=== PATIENT | female | born 1995 | race Caucasian/White ===

== ENCOUNTER → 2017-08-05 23:35 | Observation (INO) ==
--- OUTSIDE RECORDS SUMMARY | 2017-08-05 19:50 | External Medical Summary | Continuity of Care Document ---
:1995 Author Organization [facility] Address [address] [place], [place] [id number] Phone Care Team Providers Name Role Phone Deshaun Isaac MD, FAAFP Unavailable Unavailable Allergies, Adverse Reactions, Alerts Substance Reaction Severity Status peanut Unknown Active almond Unknown Active sesame seed Rash Unknown Active Medications Medication Instructions Dosage Effective Dates Status Comments (start - stop) fluconazole 150 mg take 1 tablet by 150 MG - Active tablet oral route once metronidazole 500 mg take 1 tablet by 500 MG - Active tablet ORAL route 2 times every day fluoxetine 20 mg take 1 capsule by 20 MG - Active capsule oral route every day in the morning 28 mg take 1 tablet by Not Available - Active iron-800 mcg tablet oral route every day ProAir HFA 90 inhale 1 puff by - Active mcg/actuation inhalation route aerosol inhaler every 4 - 6 hours as needed as needed Zyrtec 10 mg tablet take 1 tablet by 10 MG - Active oral route every day Problems Condition Effective Dates (start - stop) Clinical Status Low weight gain in , second - trimester Gonorrhea complicating , - second trimester Encounter for suprvsn of normal - , second trimester 21 weeks gestation of - Threatened Encounter for test, result - positive Low weight gain in , second - trimester Gonorrhea complicating , - second trimester Oth mental disorders comp , - second trimester 20 weeks gestation of - Dorsalgia, unspecified - Gonorrhea complicating , - second trimester Oth mental disorders comp , - second trimester 22 weeks gestation of - Complete or unsp spontaneous without complication Threatened Low weight gain in , second - trimester Encounter for suprvsn of normal - , second trimester 20 weeks gestation of - Low weight gain in , second - trimester Gonorrhea complicating , - second trimester Oth mental disorders comp , - second trimester 17 weeks gestation of - Gonorrhea complicating , - first trimester Oth mental disorders complicating - , first trimester Encounter for suprvsn of normal - , first trimester 12 weeks gestation of - Gonorrhea complicating , - first trimester Gonorrhea complicating , - second trimester Encounter for suprvsn of normal - , second trimester 22 weeks gestation of - Encntr screen for infections w sexl - mode of transmiss Encounter for screening for oth - infec/parastc diseases Encounter for suprvsn of normal - , first trimester Encounter For Other Specified - Screening 8 weeks gestation of - Asthma Active Kidney Stones Active Procedures Procedure Date OB Visit No Charge Results Test Name Date and Time Measure Units Reference Range Abnormal Flag Comments Unknown Advance Directives Directive Yes / No Effective Date File Name Unknown Encounters Encounter Practice Location Reason(s) Diagnoses Date Provider Care Team Description For Visit Members Shaji Saldana May- Sobbing In Womens 3-201 [facility], [address], [id number], 120, [place] Les, tel:[phone] [place], [id number], [place]. tel:[phone] Shaji Saldana Gonorrhea Apr-2 Sobbing Referring In Womens complicating 0-201 [place]. Provider: Health PA, , second 8 700 [facility] Medical Delfino R, 1522, r for suprvsn of Center [address] [place], normal , [facility], second Suite Center [id number], [email or web address] weeks 120, [place] 120, [place] gestation of Les Saldana, tel:+ [place] [address], [id number]. [place]. tel: tel: [phone] Associates Les Dorsalgia, Apr-1 Sobbing Referring In Womens unspecifiedGonorr 6-201 [place]. Provider: shashi Farrell complicating 8 700 [facility] Box , second Medical Delfino R, 1522, trimesterOth Center [address] [place] [address], mental disorders [facility], comp , Suite Center [id number], second 120, [place] 120, [place] [email or web address] weeks Les Saldana, tel: [place] [address], [id number]. [place]. tel: tel: [phone] Associates Les Low weight gain Apr-1 Sobbing Referring In Womens in , 2-201 [place]. Provider: Irena DUKE, second 8 700 [facility] Medical Delfino R, 1522, a complicating Center [address] [place], , second [facility], [facility] Suite Center [id number], r for suprvsn of 120, [place] 120, [place] normal , Les Saldana, tel: second [place], [place], [email or web address] weeks [address], [id number]. gestation of [place]. tel: tel: [phone] Associates Les Low weight gain Apr-0 Sobbing Referring In Womens in , 2-201 [place]. Provider: Health LEILANI, second 8 700 [facility] Box trimesterGonorrhe Medical Delfino R, 1522, a complicating Center [address] [place], , second [facility], trimesterOth Suite Center [id number], mental disorders 120, [place] 120, [place] comp , Les Saldana, tel: second [place], [place], [email or web address] weeks [address], [id number]. gestation of [place]. tel: tel: [phone] Associates Les Low weight gain Apr-0 Sobbing Referring In Womens Ultrasound in , 2 [place]. Provider: Irena DUKE, second 8 700 [facility] Medical Delfino R, 1522, r for suprbernaben of Center [address] [place] [address], normal , [facility], second Suite Center [id number], [email or web address] weeks 120, [place] 120, [place] gestation of Sal[place] Les, [place]: [place], [address], [id number]. [place]. tel: tel: [phone] Associates Les Low weight gain Mar-1 Sobbing Referring In Womens in , 3 [place]. Provider: Irena DUKE, second 8 700 [facility] trimesterGonorrhe Medical Delfino R, 1522, a complicating Center [address] [place] [address], , second [facility], trimesterOth Suite Center [id number], mental disorders 120, [place] 120, [place] comp , Les Saldana, tel: second [place], [place], [email or web address] weeks [address], [id number]. gestation of [place]. tel: tel: [phone] Associates Les Gonorrhea Feb-0 Sobbing Referring In Womens complicating [place]. Provider: Irena DUKE, , first 8 700 [facility], 1522, mental disorders Center [address] [place] [address], complicating [facility], , first Suite Center [id number], trimesterEncounte 120, [place] 120, [place] r for suprvsn of Les Les, tel: normal , [place], [place], first [email or web address] [address], [id number]. weeks gestation [place]. tel: of tel: [phone] Associates Les Gonorrhea Baldemar- Sobbing Referring In Womens complicating [place]. Provider: Irena DUKE, , first 8 700 [facility] trimester Medical Delfino R, 1522, Center [address] [place], [facility], [facility], Suite Center [id number], 120, [place] 120, [place] Les [place], tel: [place], [address], [id number]. [place]. tel: tel: [phone] Shaji Saldana Encntr screen for Sobbing Referring In Womens infections w sexl - [place]. Provider: Irena DUKE, mode of 8 700 Marek PO Box transmissEncounte Medical Delfino R, 1522, r for screening Center [address] [place] [address], [facility], [facility], infec/parastc Suite Center [id number], diseasesEncounter 120, [place] 120, [place] for suprvsn of Les Saldana, tel: [place] , [place], first [address], [id number]. trimesterEncounte [place]. tel: r For Other tel: [phone] Specified [id number] Screening8 weeks gestation of Associates Les Complete or unsp Aug-2 Goode In Womens spontaneous 5-201 [place]. Irena DUKE, without 7 700 PO Box complication Medical [address], [address] Trish, [facility], 120, [id number], Sal[place], [place], tel: [phone] , [place]. tel: [phone] Shaji Saldana Threatened Aug-2 Delfino Referring In Womens 4-201 [place]. 700 Provider: Irena DUKE, 7 Medical Marek PO Box Center Delfino R, 1522, , [place] [address] Trish, [facility], Medical Les BUCKLEY, [place] [id number], [place], [place] 120, [place] [id number] Les, tel: , [place]. [place], tel: [phone]. [id number] tel:[phone] Shaji Saldana Threatened Aug-2 Goode Referring In Womens abortionEncounter 3-201 [place]. Provider: Irena DUKE, for 7 700 Marek PO Box test, result Medical Delfino R, 1522, positive Center [facility] Dr Trish, [facility] Medical [place], 120, Center [id number], Sald[place], Solitario 120, [place] Les BUCKLEY, tel:[phone] [place], [id number] , [place]. [id number]. tel: tel:[phone] Family History Family Member Diagnosis Age At Onset Maternal Grandmother Cardiovascular Disease Father Diabetes No family history of Pulmonary Embolism No family history of Venous Thrombosis Maternal Grandfather Thyroid Disorder Mother Kidney Disease Maternal Grandfather Cardiovascular Disease Mother Ovarian Cancer Maternal Grandfather Lung Disease Immunizations Vaccine Date Status Comments Unknown Payers Payer name Insurance type Covered libertarian ID Authorization(s) [facility] [id number] Social History Type Description Quantity Date Captured Alcohol Use Details No Caffeine Use Details Unknown Tobacco Use Status Unknown Smoking Status Never smoker Vital Signs Date / Height Weight BMI Pulse Blood Temperature Respiratory Body Head BMI Time: Rate Pressure Rate Surface Circumference percentile Area 134.30 23.4 132/75 2018 lbs 1 mm[Hg] 4:31 kg/m PM eter (2) Chief Complaint And Reason For Visit Unknown Chief Complaint And Reason For Visit Reason For Referral Reason For Referral Unknown Plan Of Care Date Type Action Status Appointment Leandro Woo BOOKED Future Order: Radiology Order Ultrasound OB Follow-up ([id number]) Ordered Date Type Problem Goal Intervention Status Start Date Unknown. History Of Present Illness Encounter Date Complaint History Of Present Illness This patient has no known history of present illness Functional Status Encounter Date Functional Assessment Cognitive Assessment Unknown Medications Administered Medication Instructions Dosage Effective Dates (start - stop) Status Comments Drug Treatment Unknown Instructions Date Instruction Additional Information HIV and other routine tests risk factors identified by history anticipated course of care nutrition and weight gain counseling, special diet toxoplasmosis precautions (cats / raw meat) sexual activity exercise indications for ultrasound influenza vaccine environmental / work hazards travel use of any medications (including supplements, vitamins, herbs, OTC drugs) domestic violence seat belt use childbirth classes / hospital facilities hospital registration genetic testing new ob handbook
--- OUTSIDE RECORDS SUMMARY | 2017-08-05 19:50 | External Medical Summary | Continuity of Care Document ---
:1997 Author Organization [facility] Address [address] [place], [place] [id number] Phone Care Team Providers Name Role Phone Deshaun Isaac MD, FAAFP Unavailable Unavailable Allergies, Adverse Reactions, Alerts Substance Reaction Severity Status peanut Unknown Active almond Unknown Active sesame seed Rash Unknown Active Medications Medication Instructions Dosage Effective Dates Status Comments (start - stop) drospiren-e.estrad take 1 tablet by Not Available - Active -l.mefol 3 mg-0.02 oral route every mg-0.451 day mg(24)/0.451 mg(4)tablet fluoxetine 20 mg take 1 capsule by 20 MG - Active capsule oral route every day in the morning 28 mg take 1 tablet by Not Available - Active iron-800 mcg oral route every tablet day ProAir HFA 90 inhale 1 puff by - Active mcg/actuation inhalation route aerosol inhaler every 4 - 6 hours as needed as needed Zyrtec 10 mg take 1 tablet by 10 MG - Active tablet oral route every day Problems Condition Effective Dates (start - stop) Clinical Status Low weight gain in , second - trimester Encounter for suprvsn of normal - , second trimester 20 weeks gestation of - Threatened Encounter for test, result - positive Low weight gain in , second - trimester Gonorrhea complicating , - second trimester Oth mental disorders comp , - second trimester 20 weeks gestation of - Dorsalgia, unspecified - Gonorrhea complicating , - second trimester Oth mental disorders comp , - second trimester 22 weeks gestation of - Gonorrhea complicating , - second trimester Encounter for suprvsn of normal - , second trimester 22 weeks gestation of - Complete or unsp spontaneous without complication Threatened Low weight gain in , second - trimester Gonorrhea complicating , - second trimester Encounter for suprvsn of normal - , second trimester 21 weeks gestation of - Low weight gain [...] - Gonorrhea complicating , - first trimester Encntr screen for infections w sexl - mode of transmiss Encounter for screening for oth - infec/parastc diseases Encounter for suprvsn of normal - , first trimester Encounter For Other Specified - Screening 8 weeks gestation of - Asthma Active Kidney Stones Active Procedures Procedure Date Ultrasnd preg uterus, flwup/repeat Results Test Name Date and Time Measure Units Reference Range Abnormal Flag Comments Unknown Advance Directives Directive Yes / No Effective Date File Name Unknown Encounters Encounter Practice Location Reason(s) Diagnoses Date Provider Care Team Description For Visit Members Shaji Saldana Gonorrhea May-2 Sobbing Referring In Womens complicating 0-201 [place]. Provider: [facility], , second 8 700 Marek PO Box [facility] Juan Carlos Ozuna, Anthony2, r for suprvsn of Center [address] [place], normal , Drive, Medical [place], second Suite Center [id number], [email or web address] weeks 120, [place] 120, [place] gestation of Les Les, tel: [place], [address], [id number]. [place]. tel: tel: [phone] Associates Les Dorsalgia, Apr-1 Sobbing Referring In Womens unspecifiedGonorr 6- [place]. Provider: shashi Farrell complicating 8 700 [place] Box , second Medical Delfino R, 1522, trimesterOth Center [address] [place], mental disorders [facility], Medical [place], comp , Suite Center [id number], second 120, [place] 120, [place] [email or web address] weeks Les Saldana, tel: [place], [address], [id number]. [place]. tel: tel: [phone] Associates Les Low weight gain Apr-1 Sobbing Referring In Womens in , [place]. Provider: Health PA, second 8 700 [facility] Box trimesterGonorrhe Medical Delfino R, 1522, a complicating Center 700 [place], , second [address], [facility], trimesterEncounte Suite Center [id number], r for suprvsn of 120, [place] 120, [place] normal , Les Les, tel: second [place], weeks [address], [id number]. gestation of [place]. tel: tel: [phone] Associates Les Low weight gain Apr-0 Sobbing Referring In Womens in , [place]. Provider: Health PA, second 8 700 Marek Box trimesterGonorrhe Medical Delfino R, 1522, a complicating Center 700 [place], , second [address], [facility], trimesterOth Suite Center [id number], mental disorders 120, [place] 120, [place] comp , Les Saldana, tel: second [place], [email or web address] weeks [address], [id number]. gestation of [place]. tel: tel: [phone] Shaji Saldana Low weight gain Apr-0 Sobbing Referring In Womens Ultrasound in , 2- [place]. Provider: Irena DUKE, second 8 700 [facility] trimesterEncplacentia-linda hospitale Medical Delfino R, 1522, r for suprvsn of Center [address] [place] [address], normal , [facility], second Suite Center [id number], [email or web address] weeks 120, Solit[place] 120, [place] gestation of Les Les, tel: [place], [address], [id number]. [place]. tel: tel: [phone] Shaji Saldana Low weight gain Mar- Sobbing Referring In Womens in , 3 [place]. Provider: Irena DUKE, second 8 700 [facility] trimesterGonorrhe Medical Delfino R, 1522, a complicating Center [address] [place] [address], , second [facility], trimesterOth Suite Center [id number], mental disorders 120, [place] 120, [place] comp , Les Les, tel: second [place], [place], [email or web address] weeks [address], [id number]. gestation of [place]. tel: tel: [phone] Shaji Saldana Gonorrhea Feb-0 Sobbing Referring In Womens complicating [place]. Provider: Irena DUKE, , first 8 700 [facility] Delfino R, 1522, mental disorders Center [address] [place] [address], complicating [facility], , first Suite Center [id number], trimesterEncounte 120, [place] 120, [place] r for suprvsn of Les Saldana, tel: normal , [place], [place], first [address], [id number]. weeks gestation [place]. tel: of tel: [phone] Shaji Saldana Gonorrhea Feb- Sobbing Referring In Womens complicating [place]. Provider: Irena DUKE, , first 8 700 [facility] trimester Medical Delfino R, 1522, Center [address] [place] [address], Suite Center [id number], 120, Solit[place] 120, [place] Les Saldana, tel: [place], [address], [id number]. [place]. tel: tel: [phone] Shaji Saldana Encntr screen for Sobbing Referring In Womens infections w sexl [place]. Provider: Irena DUKE, mode of 8 700 Marek PO Box transmissEncounte Medical Delfino R, 1522, r for screening Center [facility] [place], for [facility], [facility], infec/parastc Suite Center [id number], [facility] [place] 120, [facility] 120, for suprvsn of Les Saldana, tel: normal , [place], [place] [address], [id number]. trimesterEncounte [place]. tel: r For Other tel: [phone] Specified [id number] Screening8 weeks gestation of Associates Les Complete or unsp Aug-2 Goode In Womens spontaneous 5-201 [place]. Irena DUKE, without 7 700 PO Box complication Medical [address], [place] [address] Trish, [facility], [facility], [id number], [place], [place], tel: [phone] , [place]. tel: [phone] Shaji Saldana Threatened Aug-2 Delfino Referring In Womens 4-201 [place]. 700 Provider: Irena DUKE, 7 Medical Marek PO Box [place] Delfino Ozuna, 1522, , [place] [address] [place], [facility], [facility] Les BUCKLEY Maddy Mccartney [id number], [place], [place] [address], [id number] Les, tel: , . [place], tel: [phone]. [id number] tel:[phone] Shaji Saldana Threatened Aug-2 Goode Referring In Womens abortionEncounter 3-201 [place]. Provider: Irena DUKE, for 7 700 Marek PO Box test, result Medical Delfino Ozuna, 1522, positive Center [facility] Dr Trish, [facility], 120, [place] [id number], [place] [address], Les BUCKLEY, tel: [phone] [place], , . [id number]. tel: tel: [phone] Family History Family Member Diagnosis Age At Onset Maternal Grandmother Cardiovascular Disease Father Diabetes No family history of Pulmonary Embolism No family history of Venous Thrombosis Maternal Grandfather Thyroid Disorder Mother Kidney Disease Maternal Grandfather Cardiovascular Disease Mother Ovarian Cancer Maternal Grandfather Lung Disease Immunizations Vaccine Date Status Comments Unknown Payers Payer name Insurance type Covered libertarian ID Authorization(s) JAH HANNON [id number] Social History Type Description Quantity Date Captured Unknown Vital Signs Date / Height Weight BMI Pulse Blood Temperature Respiratory Body Head BMI Time: Rate Pressure Rate Surface Circumference percentile Area Unknown Chief Complaint And Reason For Visit Unknown Chief Complaint And Reason For Visit Reason For Referral Reason For Referral Unknown Plan Of Care Date Type Action Status Appointment Leandro Woo BOOKED Future Order: Radiology Order Ultrasound OB Follow-up ([id number]) Ordered Future Order: Lab Order GC/CT Amplified Probe (GC_CT) Ordered Date Type Problem Goal Intervention Status [...]
[~2017-08-05 23:35] MED LIST: DimenhyDRINATE 50 MG in LR 1,000 ML IV SCH; ONDANSETRON 4 MG/2 ML INJECTION IVP ONE
[2017-08-05 23:42] VITALS: BMI 21.9
[2017-08-06 00:03] VITALS: BP 104/55; PULSE 81; RESP 16; TEMP 98; O2SAT 98
== END | disposition home or self-care (01) ==
LOC: MC
PROVIDERS: ADMIT Obstetrics & Gynecology; ATTEND Obstetrics & Gynecology

== ENCOUNTER 2017-10-04 12:46 | Inpatient (IN) ==
[2017-10-04] MEDS ORDERED: HYDROCODONE/APAP 5mg/325mg TABLET PO PRN (15:49)
[2017-10-04] MEDS ORDERED: LIDOCAINE 1% (10mg/ml) 2mL INJ PF SDV ID PRN (15:49)
[2017-10-04] MEDS ORDERED: ZOLPIDEM 5 MG TABLET PO PRN (15:49)
[2017-10-04] MEDS ORDERED: CARBOPROST 250 MCG/ML INJECTION IM PRN (15:49)
[2017-10-04] MEDS ORDERED: CALCIUM CARBONATE Chewable 500mg TABLET PO PRN (15:49)
[2017-10-04] MEDS ORDERED: SALINE FLUSH 10ml SYRINGE IV PRN ×2 (15:49)
[2017-10-04] MEDS ORDERED: MAG-AL + SIM ORAL LIQUID 30ml PO PRN (15:49)
[2017-10-04] MEDS ORDERED: METHYLERGONOVINE 0.2 MG/ML INJECTION IM PRN (15:49)
[2017-10-04] MEDS ORDERED: ACETAMINOPHEN 500 MG TABLET PO PRN (15:49)
--- OUTSIDE RECORDS SUMMARY | 2017-10-04 15:50 | External Medical Summary | Continuity of Care Document ---
:1995 Author Organization [facility] Address [address] [place], [place] [id number] Phone Care Team Providers Name Role Phone Deshaun Isaac MD, FAAFP Unavailable Unavailable Allergies, Adverse Reactions, Alerts Substance Reaction Severity Status peanut Unknown Active almond Unknown Active sesame seed Rash Unknown Active Medications Medication Instructions Dosage Effective Dates Status Comments (start - stop) RhoGAM - Active Ultra-Filtered PLUS 1,500 unit (300 mcg) intramuscular syringe fluoxetine 20 mg take 1 capsule by 20 MG - Active capsule oral route every day in the morning 28 mg take 1 tablet by Not Available - Active iron-800 mcg tablet oral route every day ProAir HFA 90 inhale 1 puff by - Active mcg/actuation inhalation route aerosol inhaler every 4 - 6 hours as needed as needed Problems Condition Effective Dates (start - stop) Clinical Status Threatened Encounter for test, result - positive Infection oth prt genitl trct in - , third trimester Low weight gain in , third - trimester Gonorrhea complicating , - third trimester Dorsalgia, unspecified - Low weight gain in , third - trimester Decreased movements, third - trimester, unsp 34 weeks gestation of - Dorsalgia, unspecified - Gonorrhea complicating , - second trimester Oth mental disorders comp , - second trimester 22 weeks gestation of - Unsp cond assoc w female genital - organs and menstrual cycle Unsp infct of urinary tract in - , third trimester Unsp cond assoc w female genital - organs and menstrual cycle Gonorrhea complicating , - third trimester Encounter for suprvsn of normal - , third trimester 37 weeks gestation of - Complete or unsp [...] second trimester 17 weeks gestation of - Low weight gain in , second - trimester Gonorrhea complicating , - second trimester Oth mental disorders comp , - second trimester 20 weeks gestation of - Low weight gain in , third - trimester 32 weeks gestation of - Decreased movements, third - trimester, unsp Gonorrhea complicating , - third trimester Oth mental disorders complicating - , third trimester 38 weeks gestation of - Gonorrhea complicating , [...] mental disorders comp , - second trimester Encounter for suprvsn of normal - , second trimester 24 weeks gestation of - Gonorrhea complicating , - second trimester Encounter for suprvsn of normal - , second trimester 27 weeks gestation of - Encntr screen for infections w sexl - mode of transmiss Encounter for screening for oth - infec/parastc diseases Encounter for suprvsn of normal - , first trimester Encounter For Other Specified - Screening 8 weeks gestation of - Encounter for suprvsn of normal - , third trimester 32 weeks gestation of - Asthma Active Kidney Stones Active Procedures Procedure Date Unknown Results Test Name Date and Time Measure Units Reference Range Abnormal Flag Comments Unknown Advance Directives Directive Yes / No Effective Date File Name Unknown Encounters Encounter Practice Location Reason(s) Diagnoses Date Provider Care Team Description For Visit Members Shaji Saldana Decreased Aug- Sobbing Referring In Womens movements, third 6-201 [place]. Provider: Health LEILANI, trimester, 8 700 [address] unspGonorrhea Medical Anthony Ruiz2, complicating Center [address] [place], [facility], third [facility], [facility], [facility]1983Oth [address] [place] [id number], mental disorders 120, [place] 120, [place] complicating Les Saldana, tel: , third [place], [place], [address] [email or web address] weeks [address], [id number]. gestation of [place]. tel: tel: [phone] Shaji Saldana Unsp cond assoc w Aug-3 Sobbing Referring In Womens female genital 0-201 [place]. Provider: Health LEILANI, organs and 8 700 [address] menstrual Medical Delfino R 1522, cycleGonorrhea Center [address] [place], [facility] , third Suite Center [id number], trimesterEncounte 120, [place] 120, [place] r for suprvsn of Les Sald[place], tel: normal , [place], third [email or web address] [address], [id number]. weeks gestation [place]. tel: of tel: [phone] Associates Les Unsp cond assoc w Felix- Delfino Referring In Womens female genital 6-201 [place]. [facility] Provider: Irena DUKE, organs and 8 Medical [facility] menstrual Center Delfino R, 1522, cycleUnsp infct , [place] [address] [place] [address], of urinary tract 120, Medical [place], in , [facility] [id number], third trimester [place], [place] 120, [place] [id number] Les, tel: , [place]. [place], tel:[phone]. [id number] tel:[phone] Shaji Saldana Aug- Sobbing Referring In Womens 3-201 [place]. Provider: Irena DUKE, 8 700 [facility] Medical Delfino R, 1522, Center [address] [place] [address], Suite Center [id number], 120, [place] 120, [place] Les Sald[place], tel: [place], [address], [id number]. [place]. tel: tel: [phone] Shaji Saldana Dorsalgia, Felix-1 Sobbing Referring In Womens unspecifiedLow 2-201 [place]. Provider: Irena DUKE, weight gain in 8 700 [facility] , third Medical Delfino R, 1522, trimesterDecrease Center [address] [place] [address] [facility], [facility], movements, third Suite Center [id number], trimester, [id number] 120, [place] 120, [place] weeks gestation Les Saldana, tel: [place], [address], [id number]. [place]. tel: tel: [phone] Shaji Saldana Encounter for Iron-2 Sobbing Referring In Womens suprvsn of normal 7-201 [place]. Provider: Irena DUKE, , third 8 700 [facility] [email or web address] weeks Medical Delfino R, 1522, gestation of Center [address] [place] [address], Suite Center [id number], 120, [place] 120, [place] Les Saldana, tel: [place], [place], 114, [id number]. [place]. tel: tel: [phone] Shaji Saldana Low weight gain Iron-2 Sobbing Referring In Womens Ultrasound in , [place]. Provider: Irena DUKE, third [email or web address] 8 700 [facility] weeks gestation Medical Delfino R, 1522, of Center [address] [place] [address], Suite Center [id number], 120, [place] 120, [place] Les Saldana, tel: [place], [place], 114, [id number]. [place]. tel: tel: [phone] Shaji Saldana Infection oth prt Iron-0 Sobbing Referring In Womens genitl trct in [place]. Provider: Irena DUKE, , third 8 700 [facility] trimesterLow Medical Delfino R, 1522, weight gain in Center [address] [place] [address], , third [facility], trimesterGonorrhe Suite Center [id number], a complicating 120, [place] 120, [place] , third Les Saldana, tel:+ [place], [address], [id number]. [place]. tel: tel: [phone] Shaji Saldana Gonorrhea May-2 Sobbing Referring In Womens complicating [place]. Provider: Irena DUKE, , second 8 700 [facility] trimesterEncounte Medical Delfino R, 1522, r for suprvsn of Center [address] [place] [address], normal , [facility], second Suite Center [id number], [email or web address] weeks 120, [place] 120, [place] gestation of Les Saldana, tel:+ [place], [address], [id number]. [place]. tel: tel: [phone] Shaji Saldana May-2 Sobbing In Womens [place]. Irena DUKE, 8 700 [facility] Medical 1522, [place], [place], Suite [id number], 120, [place], [place], [address], [place]. tel: [phone] Associates Les Gonorrhea May-0 Sobbing Referring In Womens complicating 4-201 [place]. Provider: Irena DUKE, , second 8 700 [address] trimesterOth Medical Delfino R, 1522, mental disorders Center [address] [place], [facility] , [facility], second Suite Center [id number], trimesterEncounte 120, [place] 120, [place] r for suprvsn of Les [place], tel: [place] , [place], second [address], [id number]. [id number] weeks [place]. tel: gestation of tel: [phone] Associates [facility] Gonorrhea Apr-2 Sobbing Referring In Womens complicating 0-201 [place]. Provider: Irena DUKE, , second 8 700 [address]arek Box trimesterEncounte Medical Delfino R, 1522, r for suprvsn of Center [address] [place] [address], normal , [facility], second Suite Center [id number], [email or web address] weeks 120, [place] 120, [place] gestation of Les [place], [place]: [place], [address], [id number]. [place]. tel: tel: [phone] Associates Les Dorsalgia, Apr-1 Sobbing Referring In Womens unspecifiedGonorr 6-201 [place]. Provider: shashi Farrell complicating 8 700 [address]arek Box , second Medical Delfino R, 1522, trimesterOth Center 700 [place], mental disorders [facility], Medical [place], comp , Suite Center [id number], second 120, [place] 120, [place] [id number] weeks Les Saldana, tel: [place], [address], [id number]. [place]. tel: tel: [phone] Associates Les Low weight gain Apr-1 Sobbing Referring In Womens in , 2-201 [place]. Provider: Irena DUKE, second 8 700 [address]arek Box trimesterGonorrhe Medical Delfino R, 1522, a complicating Center [address] [place] [address], , [facility], [facility] Suite Center [id number], r for suprvsn of 120, [place] 120, [place] normal , Les Les, tel:+ second [place], [email or web address] weeks [address], [id number]. gestation of [place]. tel: tel: [phone] Associates Les Low weight gain Apr-0 Sobbing Referring In Womens in , 2 [place]. Provider: Health PA, second 8 700 [facility] Medical Delfino R, 1522, a complicating Center [address] [place] [address], , [facility], trimesterOth Suite Center [id number], mental disorders 120, [place] 120, [place] comp , Les Les, tel:+ [place], weeks [address], [id number]. gestation of [place]. tel: tel: [phone] Shaji Saldana Low weight gain Apr-0 Sobbing Referring In Womens Ultrasound in , 2 [place]. Provider: Health PA, second [address] [facility] Medical Delfino R, 1522, r for suprvsn of Center [address] [place] [address], normal , [facility], [facility] Suite Center [id number], [email or web address] weeks 120, [place] 120, [place] gestation of Les Les, tel:+ [place], [address], [id number]. [place]. tel: tel: [phone] Shaji Saldana Low weight gain Mar-1 Sobbing Referring In Womens in , 3- [place]. Provider: Health [place], second 8 700 [facility] Medical Delfino R, 1522, a complicating Center [address] [place] [address], , [facility], [facility] Suite Center [id number], mental disorders 120, [place] 120, [place] comp , Les Les, tel:+ second [place], [id number] weeks [address], [id number]. gestation of [place]. tel: tel: [phone] Shaji Saldana Gonorrhea Fe- Sobbing Referring In Womens complicating 9 [place]. Provider: Health LEILANI, , first 8 700 [facility] Box trimesterOth Medical Delfino R, 1522, mental disorders Center [address] [place] [address], [facility], , first Suite Center [id number], trimesterEncounte 120, [place] 120, [place] r for suprvsn of Les Sald[place], tel: normal , [place], first [email or web address] [address], [id number]. weeks gestation [place]. tel: of tel: [phone] Shaji Saldana Gonorrhea Sobbing Referring In Womens complicating [place]. Provider: Health LEILANI, , first 8 700 [facility] Box trimester Medical Delfino R, 1522, Center [address] [place] [address], Suite Center [id number], 120, [place] 120, [place] Les Saldana, [place]: [place], [address], [id number]. [place]. tel: tel: [phone] Shaji Saldana Encntr screen for Sobbing Referring In Womens infections w sexl [place]. Provider: Irena DUKE, mode of 8 700 [facility] Box transmissEncounte Medical Delfino R, 1522, r for screening Center [address] [place] [address], [facility], infec/parastc Suite Center [id number], diseasesEncounter 120, [place] 120, [place] for suprvsn of [place], tel: [place] , [place], [place] [address], [id number]. trimesterEncounte [place]. tel: r For Other tel: [phone] Specified [id number] Screening8 weeks gestation of Shaji Saldana Complete or unsp Goode In Womens spontaneous - [place]. Health LEILANI, without 7 700 PO Box complication Medical 1522, [place], , [place], 120, [id number], [place], [place], tel:[phone] , [place]. tel: [phone] Shaji Saldana Threatened 2 Delfino Referring In Womens 4-201 [place]. 700 Provider: Irena DUKE, 7 Medical Marek PO Box Center Delfino [place]una 1522, , [facility] 700 Trish, 120, Medical [place], [facility] [id number], [facility] 120, [id number] Les, tel: , [place]. [place], tel: [phone]. [id number] tel:[phone] Shaji Saldana Threatened Sep-2 Goode Referring In Womens abortionEncounter 3-201 [place]. Provider: Irena DUKE, for 7 700 [place] PO Box test, result Medical Anthony Ruiz2, positive Center [address] Trish, [place] [address], [place] [id number], [facility], Les [place], tel: [phone] [place], , [place]. [id number]. tel: tel: [phone] Family History Family Member Diagnosis Age At Onset Maternal Grandmother Cardiovascular Disease Father Diabetes No family history of Pulmonary Embolism No family history of Venous Thrombosis Maternal Grandfather Thyroid Disorder Mother Kidney Disease Maternal Grandfather Cardiovascular Disease Mother Ovarian Cancer Maternal Grandfather Lung Disease Immunizations Vaccine Date Status Comments RhoGam completed Source: New Immunization Record Tdap completed Source: New Immunization Record Payers Payer name Insurance type Covered green party ID Authorization(s) [facility] - [id number] Medicaid [place] [id number] Social History Type Description Quantity Date Captured Alcohol Use Details No Caffeine Use Details Unknown Tobacco Use Status Unknown Smoking Status Never smoker Vital Signs Date / Height Weight BMI Pulse Blood Temperature Respiratory Body Head BMI Time: Rate Pressure Rate Surface Circumference percentile Area 4 8:35 kg/m AM dylon (2) Chief Complaint And Reason For Visit Unknown Chief Complaint And Reason For Visit Reason For Referral Reason For Referral Unknown Plan Of Care Date Type Action Status Appointment Leandro Hung BOOKED Future Order: Radiology Order Ultrasound OB Follow-up (30344) Ordered Future Order: Radiology Order Ultrasound OB Follow-up ([id number]) Ordered Date Type Problem Goal Intervention Status [...]
--- OUTSIDE RECORDS SUMMARY | 2017-10-04 15:51 | External Medical Summary | Continuity of Care Document ---
:1995 Author Organization [facility] Address [address] [place], [place] [id number] Phone Care Team Providers Name Role Phone [...] - trimester 32 weeks gestation of - Gonorrhea complicating , [...] Provider Care Team Description For Visit Members Associates Les Unsp cond assoc w Sobbing Referring In Womens female genital 0-201 [place]. Provider: Health PA, organs and [address] [place] [address] Delfino Ozuna, 1522, cycleGonorrhea [address], , third Suite Center [id number], trimesterEncounte 120, [place] 120, [place] r for suprvsn of Les Sadlana, tel: normal , [place], [place], third [email or web address] [address], [id number]. weeks gestation [place]. tel: of tel: [phone] Associates Les Unsp cond assoc w Delfino Referring In Womens female genital 6-201 [place]. [facility] Provider: Health LEILANI Snapsort and 8 [facility] Delfino R, 1522, cycleUnsp infct , [address], of urinary tract [facility], [facility], in , [facility] [id number], third trimester [place], [place] 120, [place] [id number] Les, tel: , [place]. [place], tel:[phone]. [id number] tel:[phone] Shaji Saldana Dorsalgia, Felix-1 Sobbing Referring In Womens unspecifiedLow [place]. Provider: Irena DUKE, weight gain in 8 700 [facility] , third Medical Delfino R, 1522, trimesterDecrease Center [address] [place] [address] [facility], movements, third Suite Center [id number], trimester, [id number] 120, [place] 120, [place] weeks gestation Les Saldana, tel: [place], [address], [id number]. [place]. tel: tel: [phone] Shaji Saldana Felix-0 Sobbing In Womens [place]. Health LEILANI, 8 700 [facility] Medical 1522, Center [place], [place], [address] [id number], 120, [place], [place]: [place], [address], [place]. tel: [phone] Shaji Saldana Encounter for Iron-2 Sobbing Referring In Womens suprvsn of normal [place]. Provider: Irena DUKE, , third 8 700 [facility] [email or web address] weeks Medical Delfino R, 1522, gestation of Center [address] [place] [address], Suite Center [id number], 120, [place] 120, US Les Saldana, tel: [place], [address], [id number]. [place]. tel: tel: [phone] Shaji Saldana Low weight gain Iron-2 Sobbing Referring In Womens Ultrasound in , [place]. Provider: Irena DUKE, third 8 700 [facility] weeks gestation Medical Delfino R, 1522, of Center [address] [place] [address], Suite Center [id number], 120, [place] 120, US Les Saldana, tel: [place], [address], [id number]. [place]. tel: tel: [phone] Shaji Saldana Infection oth prt Iron-0 Sobbing Referring In Womens genitl trct in [place]. Provider: Ierna DUKE, , third 8 700 [facility] trimesterLow Medical Delfino R, 1522, weight gain in Center [address] [place] [address], , third [facility], trimesterGonorrhe Suite Center [id number], a complicating 120, [place] 120, [place] , third Les Saldana, tel: [place], [address], [id number]. [place]. tel: tel: [phone] Associates Les Gonorrhea May-2 Sobbing Referring In Womens complicating 5-201 [place]. Provider: Health PA, , second 8 700 [facility] Delfino R, 1522, r for suprvsn of [address], normal , [facility], second Suite Center [id number], [email or web address] weeks 120, [place] 120, [place] gestation of Les [place], [place]: [place], [address], [id number]. [place]. tel: tel: [phone] Shaji Saldana May-2 Sobbing In Womens 1-201 [place]. Health LEILANI, 8 700 [facility] Medical 1522, [place], [place], Suite , 120, [place], [place], [address], [place]. tel: [phone] Shaji Saldana Gonorrhea May-0 Sobbing Referring In Womens complicating 4-201 [place]. Provider: Irena DUKE, , second 8 700 [facility] Delfino R, 1522, mental disorders Center [address] [place] [address], comp , [facility], second Suite Center [id number], trimesterEncounte 120, [place] 120, [place] r for suprvsn of Les [place], tel: [place] , [place], [place] [address], [id number]. [email or web address] weeks [place]. tel: gestation of tel: [phone] Associates Les Gonorrhea Apr-2 Sobbing Referring In Womens complicating 0-201 [place]. Provider: Health LEILANI, , second 8 700 [facility] Delfino R, 1522, r for suprvsn of Center [address] [place], normal , [facility], second Suite Center [id number], [email or web address] weeks 120, [place] 120, [place] gestation of Les Les, [place]: [place], [address], [id number]. [place]. tel: tel: [phone] Associates Les Dorsalgia, Apr-1 Sobbing Referring In Womens unspecifiedGonorr 6-201 [place]. Provider: Health shashi DUKE complicating 8 700 [facility] Box , second Medical Delfino R, 1522, trimesterOth Center 700 [place], mental disorders [facility], [facility], comp , Suite Center [id number], second 120, [place] 120, US [email or web address] weeks Les Saldana, tel: [place], [address], [id number]. [place]. tel: tel: [phone] Shaji Saldana Low weight gain Apr-1 Sobbing Referring In Womens in , 2-201 [place]. Provider: Health PA, second 8 700 [facility] Crystal trimesterGonorrhe Medical Delfino R, 1522, a complicating Center [address] [place], , second [facility], [facility], trimesterEncounte Suite Center [id number], r for suprvsn of 120, [place] 120, US normal , Les Les, tel:+ second [place] BUCKLEY, [email or web address] weeks [address], [id number]. gestation of [place]. tel: tel: [phone] Shaji Saldana Low weight gain Apr-0 Sobbing Referring In Womens in , - [place]. Provider: Health PA, second 8 700 [facility] Crystal trimesterGonorrhe Medical Delfino R, 1522, a complicating Center 700 [place], , second [facility], [facility], trimesterOth Suite Center [id number], mental disorders 120, [place] 120, US comp , Les Saldana, tel:+ second [place] BU[place], [email or web address] weeks [address], [id number]. gestation of [place]. tel: tel: [phone] Shaji Saldana Low weight gain Apr-0 Sobbing Referring In Womens Ultrasound in , 2 [place]. Provider: Irena DUKE, second 8 700 [facility] Medical Delfino R, 1522, r for suprvsn of Center [address] [place] [address], normal , [facility], second Suite Center [id number], [email or web address] weeks 120, [place] 120, [place] gestation of Les [place], [place]: [place], [address], [id number]. [place]. tel: tel: [phone] Associates Les Low weight gain Mar- Sobbing Referring In Womens in , 3 [place]. Provider: Irena DUKE, second 8 700 [facility] trimesterGonorrhe Medical Delfino R, 1522, a complicating Center [address] [place] [address], , second [facility], trimesterOth Suite Center [id number], mental disorders 120, [place] 120, [place] comp , Les Saldana, tel: [place], weeks [address], [id number]. gestation of [place]. tel: tel: [phone] Associates Les Gonorrhea Feb-0 Sobbing Referring In Womens complicating [place]. Provider: Irena DUKE, , first 8 700 [facility] Delfino R, 1522, mental disorders Center [address] [place] [address], complicating [facility], , first Suite Center [id number], trimesterEncounte 120, [place] 120, [place] r for suprvsn of Les Saldana, tel: normal , [place], [place], first [id number] [address], [id number]. weeks gestation [place]. tel: of tel: [phone] Associates Les Gonorrhea Feb- Sobbing Referring In Womens complicating [place]. Provider: Irena DUKE, , first 8 700 [facility] trimester Medical Delfino R, 1522, Center [address] [place] [address], Suite Center [id number], 120, [place] 120, US Les Saldana, tel: [place], [address], [id number]. [place]. tel: tel: [phone] Shaji Saldana Encntr screen for Sobbing Referring In Womens infections w sexl - [place]. Provider: Irena DUKE, mode of 8 700 [address]arek [address] transmissEncounte Medical Delfino R, 1522, r for screening Center [facility] [place], [facility], [facility], infec/parastc Suite Center [id number], diseasesEncount 120, [place] 120, [place] for suprvsn of Les Saldana, tel:2 [place] , [place] [address], [id number]. trimesterEncounte [place]. tel: r For Other tel: [phone] Specified [id number] Screening8 weeks gestation of Associates Les Complete or unsp Aug-2 Goode In Womens spontaneous 5-201 [place]. Irena DUKE, without 7 700 PO Box complication Medical [address], [address] Trish, [facility], 120, [id number], [place], [place], tel: [phone] , [place]. tel: [phone] Shaji Saldana Threatened Aug-2 Delfino Referring In Womens 4-201 [place]. 700 Provider: Irena DUKE, 7 [facility] [address] [place] Delfino R, 1522, , [place] [address] Trish, [facility], Medical MARCIO, Les, [place] [id number], [place], [facility] 120, [place] [id number] Les, tel: , . [place], tel: [phone]. [id number] tel:[phone] Shaji Saldana Threatened Aug-2 Goode Referring In Womens abortionEncounter 3-201 [place]. Provider: Irena DUKE, for 7 700 Marek PO Box test, result [facility] Delfino Ozuna, 1522, positive Center [facility] Dr Trish, [facility], 120, [place] [id number], Sald[place], [facility] 120, Les BUCKLEY, tel:[phone] [place], , [place]. [id number]. tel: tel: [phone] Family History Family Member Diagnosis Age At [...] Record Payers Payer name Insurance type Covered republican ID Authorization(s) [facility] [id number] [facility] [id number] Medicaid [facility] [id number] Social History Type Description Quantity Date Captured Unknown Vital Signs Date / Height Weight BMI Pulse Blood Temperature Respiratory Body Head BMI Time: Rate Pressure Rate Surface Circumference percentile Area Unknown Chief Complaint And Reason For Visit Unknown Chief Complaint And Reason For Visit Reason For Referral Reason For Referral Unknown Plan Of Care Date Type Action Status Appointment Leandro Woo BOOKED Appointment Leandro Woo BOOKED Future Order: Radiology Order Ultrasound OB Follow-up ([id number]) Ordered Future Order: Radiology Order Ultrasound OB Follow-up ([id number]) Ordered Date Type Problem Goal Intervention Status [...]
--- OUTSIDE RECORDS SUMMARY | 2017-10-04 15:51 | External Medical Summary | Continuity of Care Document ---
:1997 Author Organization [facility] Address [address] [place], [place] [id number] Phone Care Team Providers Name Role Phone [...] Sobbing Referring In Womens female genital 0-201 [place]. Provider: Health PA, organs and [address] [place] [address] Delfino Ozuna, 1522, cycleGonorrhea [address], , third Suite Center [id number], trimesterEncounte 120, [place] 120, [place] r for suprvsn of Les Saldana, tel: normal , [place], [place], third [id number] [address], [id number]. weeks gestation [place]. tel: of tel: [phone] Associates Les Unsp cond assoc w Delfino Referring In Womens female genital 6-201 [place]. [facility] Provider: Health LEILANI Crazidea and 8 [facility] Delfino R, 1522, cycleUnsp infct , [address], of urinary tract [facility], [facility], in , [facility] [id number], third trimester [place], [place] 120, [place] [id number] Les, tel: , [place]. [place], tel: [phone]. [id number] tel:[phone] Shaji Saldana Dorsalgia, Felix-1 Sobbing Referring In Womens unspecifiedLow 2-201 [place]. Provider: Irena DUKE, weight gain in 8 700 [facility] Crystal , third Medical Delfino R, 1522, trimesterDecrease Center [address] [place] [address], movements, third Suite Center [id number], trimester, [id number] 120, [place] 120, [place] weeks gestation Les Saldana, tel: [place], [address], [id number]. [place]. tel: tel: [phone] Shaji Saldana Aug-1 Sobbing Referring In Womens 1-201 [place]. Provider: Irena DUKE, 8 700 [facility] Crystal Juan Carlos Saleh R, 1522, Center [address] [place] [address], Suite Center [id number], 120, [place] 120, [place] Les Saldana, tel: [place], [address], [id number]. [place]. tel: tel: [phone] Shaji Saldana Encounter for Iron-2 Sobbing Referring In Womens suprvsn of normal 7- [place]. Provider: Irena DUKE, , third 8 700 [facility] Crystal [email or web address] weeks Medical Delfino Ozuna, 1522, gestation of Center [address] [place] [address], Suite Center [id number], 120, [place] 120, [place] Les Saldana, tel: [place], [address], [id number]. [place]. tel: tel: [phone] Shaji Saldana Low weight gain Iron-2 Sobbing Referring In Womens Ultrasound in , 7- [place]. Provider: Irena DUKE, third [email or web address] 8 700 [facility] weeks gestation Medical Delfino Ozuna, 1522, of Center [address] [place] [address], Suite Center [id number], 120, [place] 120, [place] Les Saldana, tel: [place], [address], [id number]. [place]. tel: tel: [phone] Shaji Saldana Infection oth prt Iron-0 Sobbing Referring In Womens genitl trct in 7 [place]. Provider: Health LEILANI, , third 8 700 [facility] trimesterLow Medical Delfino R, 1522, weight gain in Center [address] [place] [address], , third [facility], trimesterGonorrhe Suite Center [id number], a complicating 120, [place] 120, [place] , third Les Saldana, tel:+ [place], [address], [id number]. [place]. tel: tel: [phone] Associates Les Gonorrhea May-2 Sobbing Referring In Womens complicating 5-201 [place]. Provider: Irena DUKE, , second 8 700 [facility] trimesterEncseneca hospitale Medical Delfino R, 1522, r for suprvsn of [address], normal , [facility], second Suite Center [id number], [email or web address] weeks 120, [place] 120, [place] gestation of Les Saldana, tel: [place], [address], [id number]. [place]. tel: tel: [phone] Shaji Saldana May-2 Sobbing In Womens 1-201 [place]. Health LEILANI, 8 700 [facility] Medical 1522, Center [place], [place], Suite , 120, [place], tel:+ [place], [address], [place]. tel: [phone] Shaji Saldana Gonorrhea May-0 Sobbing Referring In Womens complicating 4-201 [place]. Provider: Health LEILANI, , second 8 700 [facility] trimesterOth Medical Delfino R, 1522, mental disorders Center [address] [place] [address], comp , [facility], second Suite Center [id number], trimesterEncounte 120, [place] 120, [place] r for suprvsn of Les Saldana, tel:+[phone] normal , [place], [place], second [address], [id number]. [id number] weeks [place]. tel: gestation of tel: [phone] Associates Les Gonorrhea Apr-2 Sobbing Referring In Womens complicating 0-201 [place]. Provider: Health LEILANI, , second 8 700 [address]arek PO Box trimesterEncounte Medical Delfino R, 1522, r for suprvsn of Center 700 [place], normal , [facility], second Suite Center [id number], [email or web address] weeks 120, [place] 120, [place] gestation of Les Les, tel:+ [place], [address], [id number]. [place]. tel: tel: [phone] Associates Les Dorsalgia, Apr-1 Sobbing Referring In Womens unspecifiedGonorr 6-201 [place]. Provider: shashi Farrell complicating 8 700 Marek MABEL Box , second Medical Delfino R, 1522, trimesterOth Center [address] [place] [address], mental disorders [facility], [facility], comp , Suite Center [id number], second 120, [place] 120, [place] [email or web address] weeks Les Saldana, tel: [place] [address], [id number]. [place]. tel: tel: [phone] Shaji Saldana Low weight gain Apr-1 Sobbing Referring In Womens in , 2- [place]. Provider: Health PA, second 8 700 Marek Rojas trimesterGonorrhe Medical Delfino R, 1522, a complicating Center [address] [place], , second [facility], trimesterEncounte Suite Center [id number], r for suprvsn of 120, [place] 120, [place] normal , Les Saldana, tel: second [place], [email or web address] weeks [address], [id number]. gestation of [place]. tel: tel: [phone] Associates Les Low weight gain Apr-0 Sobbing Referring In Womens in , 2- [place]. Provider: Health PA, second 8 700 Marek MABEL Box trimesterGonorrhe Medical Delfino R, 1522, a complicating Center 700 [place], , second [facility], trimesterOth Suite Center [id number], mental disorders 120, [place] 120, [place] comp , Les Saldana, tel: second [place], [address] [id number] weeks [address], [id number]. gestation of [place]. tel: tel: [phone] Associates Les Low weight gain Apr-0 Sobbing Referring In Womens Ultrasound in , 2 [place]. Provider: Irena DUKE, second 8 700 [facility] Box trimesterEncseneca hospitale Medical Delfino R, 1522, r for suprvsn of Center [address] [place] [address], normal , [facility], second Suite Center [id number], [email or web address] weeks 120, [place] 120, [place] gestation of Les [place], [place]: [place], [address], [id number]. [place]. tel: tel: [phone] Associates Les Low weight gain Mar-1 Sobbing Referring In Womens in , 3- [place]. Provider: Irena DUKE, second 8 700 [facility] Box trimesterGonorrhe Medical Delfino R, 1522, a complicating Center [address] [place] [address], , second [facility], trimesterOth Suite Center [id number], mental disorders 120, [place] 120, [place] comp , Les Saldana, tel: second [place], [email or web address] weeks [address], [id number]. gestation of [place]. tel: tel: [phone] Associates Les Gonorrhea Feb-0 Sobbing Referring In Womens complicating 9 [place]. Provider: Irena DUKE, , first 8 700 [facility] Delfino R, 1522, mental disorders Center [address] [place] [address], complicating [facility], , first Suite Center [id number], trimesterEncounte 120, [place] 120, [place] r for suprvsn of Les Saldana, tel: normal , [place], first [address], [id number]. weeks gestation [place]. tel: of tel: [phone] Associates Les Gonorrhea Baldemar- Sobbing Referring In Womens complicating 6 [place]. Provider: Irena DUKE, , first 8 700 [facility] trimester Medical Delfino R, 1522, Center [address] [place] [address], Suite Center [id number], 120, [place] 120, [place] Les [place], tel: [place], [address], [id number]. [place]. tel: tel: [phone] Shaji Saldana Encntr screen for Sobbing Referring In Womens infections w sexl 1-201 [place]. Provider: Irena DUKE, mode of 8 700 [address] PO Box transmissEncounte Medical Delfino R, 1522, r for screening Center [address] [place] [address], for [facility], infec/parastc Suite Center [id number], diseasesEncounter 120, [place] 120, [place] for suprvsn of Les Saldana, tel: normal , [place], [place] [address], [id number]. trimesterEncounte [place]. tel: r For Other tel: [phone] Specified [id number] Screening8 weeks gestation of Associates Les Complete or unsp Aug-2 Goode In Womens spontaneous 5-201 [place]. Health LEILANI, without 7 700 PO Box complication Medical [address], [address] Trish, [facility], 120, [id number], Sald[place], [place]ARC[place], tel:[phone] , [place]. tel: [phone] Shaji Saldana Threatened Aug-2 Delfino Referring In Womens 4-201 [place]. 700 Provider: Irena DUKE, 7 [facility] PO Box [place] Delfino Ozuna, 1522, , [place] [address] [place], [facility], [facility] [id number], [place], [facility] 120, [place] [id number] Les, tel: , [place]. [place], tel:[phone]. [id number] tel:[phone] Shaji Saldana Threatened Aug-2 Goode Referring In Womens abortionEncounter 3-201 [place]. Provider: Irena DUKE, for 7 700 [address]arek PO Box test, result Medical Delfino R, 1522, positive Center [facility] Dr Trish, [facility] [place], 120, [place] [id number], [place], [facility] 120, [place] Les BUCKLEY, tel:[phone] [place], , [place]. [id number]. tel: tel: [phone] Family History Family Member Diagnosis Age At [...] name Insurance type Covered republican ID Authorization(s) [facility] - [id number] Medicaid [facility] [id number] Social History Type Description Quantity Date Captured Alcohol Use Details No Caffeine Use Details Unknown Tobacco Use Status Unknown Smoking Status Never smoker Vital Signs Date / Height Weight BMI Pulse Blood Temperature Respiratory Body Head BMI Time: Rate Pressure Rate Surface Circumference percentile Area 24.8 4 mm[Hg] 7:42 kg/m AM eter (2) Chief Complaint And Reason For Visit Unknown Chief Complaint And Reason For Visit Reason For Referral Reason For Referral Unknown Plan Of Care Date Type Action Status Appointment Leandro Woo BOOKED Appointment Leandro Woo BOOKED Future Order: Radiology Order Ultrasound OB Follow-up ([id number]) Ordered Future Order: Radiology Order Ultrasound OB Follow-up ([id number]) Ordered Date Type Problem Goal Intervention Status [...]
--- OUTSIDE RECORDS SUMMARY | 2017-10-04 15:51 | External Medical Summary | Continuity of Care Document ---
:1995 Author Organization [facility] Address [address] [place], [place] [id number] Phone Care Team Providers Name Role Phone Deshaun Isaac MD, FAAFP Unavailable Unavailable Allergies, Adverse Reactions, Alerts Substance Reaction Severity Status peanut Unknown Active almond Unknown Active sesame seed Rash Unknown Active Medications Medication Instructions Dosage Effective Status Comments Dates (start - stop) RhoGAM - Active Ultra-Filtered [...] - 6 hours as needed as needed acyclovir 400 mg take 1 tablet by - No Longer tablet oral route 3 times Active every day starting at 36 wga until delivery. Problems Condition Effective Dates (start - stop) Clinical Status Dorsalgia, unspecified - Low weight gain in , third - trimester Decreased movements, third - trimester, unsp 34 weeks gestation of - Threatened Encounter for test, result - positive Infection oth prt genitl trct in - , third trimester Low weight gain in , third - trimester Gonorrhea complicating , - third trimester Dorsalgia, unspecified - Gonorrhea complicating , - [...] Team Description For Visit Members [facility] [place] cond assoc w Sobbing Referring In Womens female genital 0-201 [place]. Provider: Health PA, [employer] and [address] [place] [address] Delfino R, 1522, cycleGonorrhea [address] complicating [facility], [facility], , third Suite Center [id number], trimesterEncounte 120, [place]it[place] 120, [place] r for suprvsn of LesLes, tel:2 normal , [place], [place], [address] third [email or web address] [id number], [id number]. weeks gestation [place]. tel:+ of tel: [phone] Associates Les Carrp cond assoc w Aug- Delfino Referring In Womens female genital 6-201 [place]. [facility] Provider: Health [place] [employer] and [address] [place] [address] menstrual [place] Delfino R, 1522, cycleUnsp infct , Solit[place] [address], of urinary tract 120, Medical [place], in , [facility] [id number], third trimester [place], [place] 120, [place] [id number] Les, tel: , [place]. [place], tel: [phone]. [id number] tel:[phone] Shaji Saldana Dorsalgia, Aug- Sobbing Referring In Womens unspecifiedLow [place]. Provider: Health LEILANI, weight gain in 8 700 [facility] Crystal , third Medical Delfino R, 1522, trimesterDecrease Center [address] [place] [address] [facility], movements, third Suite Center [id number], trimester, [id number] 120, [place] 120, [place] weeks gestation Les Saldana, tel: [place], [address], [id number]. [place]. tel: tel: [phone] Shaji Saldana Encounter for Iron-2 Sobbing Referring In Womens suprvsn of normal [place]. Provider: Irena DUKE, , third 8 700 Marek [place] [email or web address] weeks Medical Delfino R, 1522, gestation of Center [address] [place] [address], Suite Center [id number], 120, [place] 120, [place] Les Sal[place], [place]: [place], [address], [id number]. [place]. tel: tel: [phone] Shaji Saldana Low weight gain Iron-2 Sobbing Referring In Womens Ultrasound in , [place]. Provider: Irena DUKE, third [email or web address] 8 700 Marek Crystal weeks gestation Medical Delfino R, 1522, of Center [address] [place] [address], Suite Center [id number], 120, [place] 120, [place] Les Saldana, [place]: [place], [address], [id number]. [place]. tel: tel: [phone] Shaji Saldana Infection oth prt Iron-0 Sobbing Referring In Womens genitl trct in [place]. Provider: Health LEILANI, , third 8 700 [facility] Box trimesterLow Medical Delfino R, 1522, weight gain in Center [address] [place] [address], , third [facility], trimesterGonorrhe Suite Center [id number], a complicating 120, [place] 120, [place] , third Les Saldana, tel: [place], [address], [id number]. [place]. tel: tel: [phone] Associates Les Gonorrhea May-2 Sobbing Referring In Womens complicating 5-201 [place]. Provider: Health LEILANI, , second 8 700 [facility] Medical Delfino R, 1522, r for suprvsn of [address], normal , [facility], second Suite Center [id number], [email or web address] weeks 120, [place] 120, [place] gestation of Les Saldana, tel: [place], [address], [id number]. [place]. tel: tel: [phone] Associates Les May-2 Sobbing In Womens 1-201 [place]. Health LEILANI, 8 700 [facility] 1522, [employer], [place], Suite , 120, [place], tel:+ [place], [address], [place]. tel: [phone] Associates Les Gonorrhea May-0 Sobbing Referring In Womens complicating 4-201 [place]. Provider: Irena DUKE, , second 8 700 [facility] Medical Delfino R, 1522, mental disorders Center [address] [place] [address], comp , [facility], second Suite Center [id number], trimesterEncounte 120, [place]it[place] 120, [place] r for suprvsn of Les Saldana, tel: normal , [place], second [address], [id number]. [email or web address] weeks [place]. tel: gestation of tel: [phone] Associates Les Gonorrhea Apr-2 Sobbing Referring In Womens complicating 0-201 [place]. Provider: Irena DUKE, , second 8 700 [facility] Delfino R, 1522, r for suprvsn of [address], normal , [facility], second Suite Center [id number], [email or web address] weeks 120, [place] 120, [place] gestation of Sald[place] Les, [place]: [place], [address], [id number]. [place]. tel: tel: [phone] Associates Les Dorsalgia, Apr-1 Sobbing Referring In Womens unspecifiedGonorr 6- [place]. Provider: shashi Farrell complicating 8 700 [facility] Box , second Medical Delfino R, 1522, trimesterOth Center [address], mental disorders [facility], [facility], comp , Suite Center [id number], second 120, [place] 120, [place] [email or web address] weeks Les Les, tel: [place], [address], [id number]. [place]. tel: tel: [phone] Associates Les Low weight gain Apr-1 Sobbing Referring In Womens in , [place]. Provider: Irena DUKE, shantanu 8 700 Marek Box trimesterGonorrhe Medical Delfino R, 1522, a complicating Center [address], , [address], [facility], trimesterEncounte Suite Center [id number], r for suprvsn of 120, [place] 120, [place] normal , Les Saldana, tel: second [place] BU[place]LEY, [email or web address] weeks [address], [id number]. gestation of [place]. tel: tel: [phone] Associates Les Low weight gain Apr-0 Sobbing Referring In Womens in , [place]. Provider: Irena DUKE, shantanu 8 700 [facility] Box trimesterGonorrhe Medical Delfino R, 1522, a complicating Center [address], , [address], [facility], trimesterOth Suite Center [id number], mental disorders 120, [place] 120, [place] comp , Les Saldana, tel: second [place] BUCKLEY, [email or web address] weeks [address], [id number]. gestation of [place]. tel: tel: [phone] Associates Les Low weight gain Apr-0 Sobbing Referring In Womens Ultrasound in , [place]. Provider: Health PA, second 8 700 [facility] Medical Delfino R, 1522, r for suprvsn of Center [address] [place] [address], normal , [facility], second Suite Center [id number], weeks 120, [place] 120, [place] gestation of Les Les, [place]: [place], [address], [id number]. [place]. tel: tel: [phone] Shaji Saldana Low weight gain Mar- Sobbing Referring In Womens in , 3-201 [place]. Provider: Health PA, second 8 700 [facility] trimesterGonorrhe Medical Delfino R, 1522, a complicating Center [address] [place] [address], , second [facility], [facility], trimesterOth Suite Center [id number], mental disorders 120, [place] 120, [place] comp , Les Les, tel: second [place], [place], [email or web address] weeks [address], [id number]. gestation of [place]. tel: tel: [phone] Shaji Saldana Gonorrhea Fe-0 Sobbing Referring In Womens complicating 9-201 [place]. Provider: Health PA, , first 8 700 [facility] Medical Delfino R, 1522, mental disorders Center [address] [place] [address], complicating [facility], , first Suite Center [id number], trimesterEncounte 120, [place]it[place] 120, [place] r for suprvsn of Les Saldana, tel: normal , [place], first [email or web address] [address], [id number]. weeks gestation [place]. tel: of tel: [phone] Shaji Saldana Gonorrhea Feb- Sobbing Referring In Womens complicating 6-201 [place]. Provider: Health PA, , first 8 700 [facility] Medical Delfino R, 1522, Center [address] [place] [address], [facility], Suite Center [id number], 120, [place] 120, [place] Les Saldana, [place]: [place], [address], [id number]. [place]. tel: tel: [phone] Shaji Saldana Encntr screen for Sobbing Referring In Womens infections w sexl - Ashutosh. Provider: Irena DUKE, mode of 8 700 Marek PO Box transmissEncounte Medical Delfino R, 1522, r for screening Center [facility] Trish, for oth Drive, [facility], infec/parastc Suite Center [id number], diseasesEncounter 120, [facility] 120, for suprvsn of Les Saldana, tel: [place] , [place] [address], [id number]. trimesterEncounte [place]. tel: r For Other tel: [phone] Specified [id number] weeks gestation of Associates Les Complete or unsp Aug-2 Goode In Womens spontaneous 5- [place]. Health LEILANI, without 7 700 PO Box complication Medical 15[address], [address] [address] Trish, [facility], 120, [id number], [facility], tel: [phone] , [place]. tel: [phone] Shaji Saldana Threatened Aug-2 Delfino Referring In Womens 4-201 [place]. 700 Provider: Irena DUKE, 7 Medical Marek PO Box Center Delfino Ozuna, 1522, , [place] [address] Trish, [facility], [facility] [id number], [place], [place] [address], [id number] Les, tel: , . [place], tel:[phone]. [id number] tel:[phone] Shaji Saldana Threatened Aug-2 Goode Referring In Womens abortionEncounter 3-201 [place]. Provider: Irena DUKE, for 7 700 Marek PO Box test, result Medical Delfino Ozuna, 1522, positive Center [facility] Dr Trish, [facility], 120, [place] [id number], [place] [address], Les BUCKLEY, tel:[phone] [place], , . [id number]. tel: tel: [phone] Family History Family Member Diagnosis Age At [...] name Insurance type Covered republican ID Authorization(s) [facility] [id number] [facility] [id number] Medicaid [facility] [id number] Social History Type Description Quantity Date Captured Alcohol Use Details No Caffeine Use Details Unknown Tobacco Use Status Unknown Smoking Status Never smoker Vital Signs Date / Height Weight BMI Pulse Blood Temperature Respiratory Body Head BMI Time: Rate Pressure Rate Surface Circumference percentile Area 142.50 24.8 116/77 lbs 4 mm[Hg] 9:52 kg/m AM eter (2) Chief Complaint And Reason For Visit Unknown Chief Complaint And Reason For Visit Reason For Referral Reason For Referral Unknown Plan Of Care Date Type Action Status Appointment Leandro Woo BOOKED Appointment Leandro Woo BOOKED Future Order: Radiology Order Ultrasound OB Follow-up ([id number]) Ordered Future Order: Radiology Order Ultrasound OB Follow-up ([id number]) Ordered Date Type Problem Goal Intervention Status [...]
[2017-10-04 17:24] VITALS: BMI 26.2
[2017-10-05] MEDS ORDERED: OXYTOCIN DRIP 30 UNIT/500 ML ML IV PRN (04:00)
[2017-10-05] MEDS: LR 1,000 ML IV PRN ×4 (04:00→14:46)
[2017-10-05] MEDS: D5LR 1,000 ML IV PRN ×2 (04:00→12:59)
[2017-10-05] MEDS ORDERED: ONDANSETRON 4 MG/2 ML INJECTION IVP PRN ×2 (09:13→15:58)
[2017-10-05] MEDS ORDERED: ROPIVACAINE 1% 10MG/ML INJ 200 MG, SUFentanil 50 MCG in NS 100 ML EPI PRN (09:13)
[2017-10-05] MEDS ORDERED: NALOXONE 0.4 MG/ML INJECTION IVP PRN (09:13)
[2017-10-05] MEDS ORDERED: DiphenhydrAMINE 50 MG/ML INJECTION IVP PRN ×2 (09:13→15:58)
--- NOTE | 2017-10-05 09:13 | Anesthesia Preoperative Report ---
Anesthesia Epidural/Spinal Rec - Date and Time Date: 10/05/17 Procedure: Labor Epidural Plan: Epidural - Vital Signs /Para: P:0 - Medictaions & Allergies Inpatient Medications: Current Medications Acetaminophen (Tylenol) 500 - 1,000 mg PO Q4H PRN PRN Reason: Pain Last Admin: 10/04/17 21:29 Dose: 1,000 mg Hydrocodone Bitart/Acetaminophen ([place] [place] 5/325) 1 - 2 tab PO Q4H PRN PRN Reason: Pain Al Hydroxide/Mg Hydroxide (Maalox Plus) 30 ml PO Q3H PRN PRN Reason: Indigestion Calcium Carbonate (Tums) 500 - 1,000 mg PO Q2H PRN PRN Reason: Indigestion Carboprost Tromethamine (Hemabate) 250 mcg IM O PRN PRN Reason: .Downtime Lactated Ringer's (Lactated Ringers) 1,000 mls @ 999 mls/hr IV .Q1H1M PRN Last Admin: 10/05/17 07:21 Dose: 999 mls/hr Dextrose/Lactated Ringer's (Dextrose 5%-Lactated Ringers) 1,000 mls @ 125 mls/ hr IV .Q8H PRN PRN Reason: Labor Last Admin: 10/05/17 04:00 Dose: 125 mls/hr Oxytocin (Pitocin Drip) 30 unit in 500 mls @ 2 mls/hr IV .Q24H PRN; Protocol PRN Reason: Induction/Augmentation Last Admin: 10/05/17 04:00 Dose: 2 mls/hr Lidocaine HCl (Xylocaine-Mpf 1% Vial) 0.2 mg ID O PRN PRN Reason: IV Start Methylergonovine Maleate (Methergine) 0.2 mg IM O PRN Misoprostol (Cytotec) 800 mcg NH ONCE PRN Sodium Chloride (Iv Flush) 10 - 80 ml IV PRN PRN PRN Reason: Flushing Sodium Chloride (Iv Flush) 10 - 80 ml IV PRN PRN PRN Reason: Flushing Zolpidem Tartrate (Ambien) 5 mg PO O PRN PRN Reason: Insomnia Last Admin: 10/04/17 21:29 Dose: 5 mg Allergies/Adverse Reactions: Allergies Allergy/AdvReac Type Severity Reaction Status Date / Time almond Allergy Unknown Verified 08/05/17 21:02 peanut Allergy Unknown ANAPHYLAXIS Verified 09/10/16 10:32 Sesame Seeds Allergy Verified 08/05/17 21:02 - Home Medications Home Medications: Home Medications Medication Instructions Recorded Confirmed Type Albuterol Sulfate [Proair Hfa] 2 puff INH Q4H PRN 30 Days #0 05/01/16 10/04/17 Rx inhaler Fluticasone Propionate [Flovent 1 puff ORAL INH BID 30 Days #0 05/01/16 Rx Hfa] inhaler Acetaminophen [Tylenol] 500 mg PO Q5H PRN 09/14/17 10/04/17 History FLUoxetine [Prozac] 1 cap PO DAILY 09/14/17 10/04/17 History Vitamin Tab [Jaxson 1 tab PO DAILY 09/14/17 10/04/17 History ] diphenhydrAMINE HCl [Benadryl 25 mg PO Q6H PRN 09/14/17 10/04/17 History Allergy] Acyclovir 400 tab PO 1-2XD 10/04/17 10/04/17 History - Medical History Respiratory: Reports: Asthma (Inhaler PRN) DENIES: Bronchitis, Chronic Obstructive Pulmonary Disease (COPD), Dyspnea, Orthopnea, Pulmonary Embolism, Pneumonia, Upper Respiratory Infection, Pulmonary Edema, Sleep Apnea, Tuberculosis, Other Cardiovascular: DENIES: Abnormal EKG, Angina, Arrhythmia, Congestive Heart Failure, Coronary Artery Disease, Heart Murmur, Hypertension, Hypotension, High Cholesterol, Myocardial Infarction, Rheumatic Fever, Valvular Heart Disease, Other Gastrointestional: DENIES: Obstructive Bowel, Hepatitis, Cirrhosis, Nausea or Vomiting Present, Gastroesophageal Reflux Disease, Gastrointestinal Bleeding, Hiatal Hernia, Ulcer , Morbid Obesity, Other Neuro/Musculoskeletal: Reports: Back Problems (spinal fusion 2012), Depression Denies: Cerebrovascular Accident, Headaches, Loss of Consciousness, Muscle Weakness, Neuromuscular Disorder, Paralysis, Paresthesia, Syncope, Seizures, Other Renal/Endocrine: DENIES: Diabetes Mellitus Type 1, Diabetes Mellitus Type 2, Renal Failure, Dialysis, Thyroid Disease, Weight Loss, Weight Gain, Other Other History: Reports: Now (EDC 10/08/17) - Surgical History GI Surgery/Treatments: Reports: Colonoscopy (as a child) Hx Family Anesthesia Reaction: No History of Motion Sickness: No - Social History Smoking Status: Never smoker Second Hand Exposure: No Substance Use Type: does not use Alcohol Intake Frequency: does not drink - Pertinent Findings Lab Data: CBC and BMP 10/04/17 16:14 - Physical Exam Respiratory Exam: lungs clear, bilateral breath sounds equal Cardiovascular Exam: regular rate and rhythm, no murmur - Airway Assessment Mallampati Score: I TMD: 3 Fingerbreadths Neck Extension: good Overall Assessment: no airway concerns - ASA ASA Score: 2 - Discussion Discussion: Discussed risks/options/alternatives of anesthesia and questions answered. Patient consents. Nursing pain assessment noted. Anesthesia Discussion: parent Attestation Statement: Prior to the delivery of any anesthetic medication, I examined the patient, developed the plan, obtained the patient's consent and discussed the risk and benefits of the procedure with the patient/guardian.
[2017-10-05] MEDS ORDERED: CEFAZOLIN PREMIX (MC ONLY) 2 GM/50 ML BAG IV ONE (14:27)
[2017-10-05] MEDS ORDERED: FAMOTIDINE PB 20 MG/50 ML BAG IV ONE (14:27)
[2017-10-05] MEDS ORDERED: CITRIC ACID/SODIUM CITRATE 30ml PO ONE (14:27)
[2017-10-05] MEDS ORDERED: AZITHROMYCIN IV 500 MG in NS 250ml 250 ML IV SCH (14:30)
[2017-10-05] MEDS ORDERED: MORPHINE SULFATE PF 5mg/10ml INJ (Duramorph) ONE (14:59)
[2017-10-05] MEDS ORDERED: ONDANSETRON 4 MG/2 ML INJECTION ONE (15:04)
[2017-10-05] MEDS ORDERED: OXYTOCIN BOLUS BAG 30 UNIT/500 ML ML IV SCH (15:30)
--- NOTE | 2017-10-05 15:45 | Operative Note ---
Operative Note - Date of Operation Date of Operation: 10/05/17 - Preoperative Diagnosis Nonreassuring FHT - Postoperative Diagnosis nonreassuring FHT - Procedure Low-transverse - Surgeon Surgeon: Ashutosh Dumont DO - Dispatch Specialist OB Dispatch Specialist: Stewart Lloyd, SurgJennifer Assist - Anesthesia Anesthesia Provider: Michi Lantigua CRNA Anesthesia Type: Combined Spinal/Epidural - Estimated Blood Loss Estimated Blood Loss:: 800 - APGARS : 5/8/9 - Weight Bow Weight (grams): Dakota - Description of Procedure Description of Procedure: See Dictation
[2017-10-05] MEDS ORDERED: SIMETHICONE 80 MG CHEWABLE TABLET PO PRN (15:46)
[2017-10-05] MEDS ORDERED: DiphenhydrAMINE 25 MG CAPSULE PO PRN (15:46)
[2017-10-05] MEDS ORDERED: ACETAMINOPHEN 500 MG TABLET PO PRN (15:46)
[2017-10-05] MEDS ORDERED: CALCIUM CARBONATE Chewable 500mg TABLET PO PRN (15:46)
[2017-10-05] MEDS ORDERED: HYDROCORTISONE 2.5% CREAM 30gm RECTALLY PRN (15:46)
[2017-10-05] MEDS ORDERED: ONDANSETRON ODT 4 MG TABLET PO PRN (15:46)
[2017-10-05] MEDS ORDERED: RHOPHYLAC - PHARMACY CONSULT MC ONE ×2 (15:46→18:54)
[2017-10-05] MEDS ORDERED: METOCLOPRAMIDE 10mg/2ml INJECTION IVP PRN (15:58)
[2017-10-05] MEDS ORDERED: NALOXONE 2 MG/2 ML INJECTION PFS IVP PRN (15:58)
[2017-10-05] MEDS ORDERED: NALBUPHINE 10 MG/ML INJECTION IVP PRN (15:58)
[2017-10-05] MEDS ORDERED: OXYTOCIN DRIP 30 UNIT/500 ML ML IV SCH (16:00)
[2017-10-05] MEDS: D5LR 1,000 ML IV SCH (16:57)
[2017-10-05] MEDS: IBUPROFEN 800 MG TABLET PO PRN (17:13)
--- NOTE | 2017-10-05 19:50 | Operative Note ---
DATE OF PROCEDURE 10/05/2017 PREOPERATIVE DIAGNOSES 1. Failed induction of labor. 2. Nonreassuring heart tones. 3. Single live intrauterine at term. 4. Rh negative. POSTOPERATIVE DIAGNOSES 1. Failed induction of labor. 2. Nonreassuring heart tones. 3. Single live intrauterine at term - delivered. 4. Rh negative. 5. Delivered PROCEDURE Low transverse section. SURGEON Ashutosh Dumont, SHELL SORTER Eric Lloyd - Gatekeeper ANESTHESIA PROVIDER Michi Lantigua, ABBE ANESTHESIA Combined spinal epidural. ESTIMATED BLOOD LOSS 100 mL. APGARS 5/8/9. WEIGHT 3394 g. NAME Dakota. FINDINGS Viable male in cephalic presentation. INDICATIONS FOR PROCEDURE This was a G2, P0 who presented to Maternal/Child for a Almendarez bulb ripening and induction of labor for logistics. She underwent a Almendarez bulb and Pitocin was started early on the morning at approximately 4 a.m. The water was broken and patient made progress to about 4.5 cm. She started to have occasional early and variable decelerations. She made progress all the way to 6 cm but then was having repetitive deep variable decelerations. Pitocin break was taken. IUPC and DFM were placed. Amnioinfusion was started and Pitocin was restarted. Unfortunately the variables would not resolve anytime the Pitocin was made to be adequate on MVUs. Discussed risk with the patient for category II heart tones and remote from delivery. Risks, benefits and alternatives to the procedure were discussed. Questions were elicited and answered. PROCEDURE The patient was taken to the operating theatre where epidural anesthesia was found to be adequate. She was then prepped and draped in the dorsal supine position with a leftward tilt. A Pfannenstiel skin incision was made and carried through the underlying layers of the fascia down to the rectus muscles. The rectus muscles were in the midline and the rectus muscle was then extended laterally. The superior aspect of the rectus muscle was grasped with the Nabila clamp, elevated and dissected off sharply. The inferior aspect of the fascial incision was then grasped and the rectus muscle was dissected off sharply. Rectus muscles were then in the midline and the peritoneum was entered bluntly. The peritoneal incision was then extended superiorly and inferiorly with good visualization of the bladder. The bladder blade was inserted and vesicouterine peritoneum was identified and entered sharply with the Metzenbaum scissors. This incision was then extended laterally and the bladder flap was created digitally. Bladder blade was reinserted. The uterine incision was then made in a transverse fashion and extended laterally with cephalad-caudad motion. The 's head was delivered followed by the body. Cord was clamped and cut and the infant was handed to the nurse who was waiting. The placenta was expressed. The uterus was exteriorized and cleared of all clot and debris and the uterine incision was repaired with 0-Monocryl in a running locked fashion. A second layer of the same suture was used in an imbricating fashion to obtain excellent hemostasis. The bladder flap was then reapproximated with 3-0 Vicryl in a running fashion. The peritoneum was then reapproximated with 3-0 Monocryl in a running fashion. The rectus muscles were then reapproximated with a 3-0 Vicryl in a running fashion and the fascial incision was repaired with 0-Vicryl in a running fashion. Skin was then closed with 4-0 Monocryl and Dermabond. The patient tolerated the procedure well. Sponge, lap and needle counts were correct x 2. Patient was taken to recovery room in stable condition. GALO
[2017-10-05] MEDS: SIMETHICONE 80 MG CHEWABLE TABLET PO SCH ×2 (20:25)
[2017-10-05] MEDS: Oxycodone/Acetaminophen 5/325 1 TAB PO PRN (20:25)
[2017-10-05 23:35] VITALS: RESP 16
[2017-10-06] MEDS: D5LR 1,000 ML IV SCH (00:36)
[2017-10-06] MEDS ORDERED: ACETAMINOPHEN 500 MG TABLET PO PRN (06:30)
--- NOTE | 2017-10-06 07:09 | OB/GYN Progress Note ---
OB-PP Progress Note - General PPD1 POD:: POD1 Maternal Group B Strep: Negative Maternal Rh: negative Maternal Rubella Status: Immune - Subjective Date: 10/06/17 Lochia: Minimal Pain: controlled Voiding: chapman still in place Nausea or Vomiting Present: No - Objective Vital Signs: Last Vital Signs Temp 98.0 F 10/06/17 04:45 Pulse 74 10/06/17 04:45 Resp 16 10/06/17 04:45 BP 90/50 10/06/17 04:45 Pulse Ox 100 10/06/17 04:45 Urine Output: good General: alert and oriented Cardiovascular: regular rate,rhythm Respiratory: non-labored Abdomen: fundus firm, non-tender Incision: normal, clean, dry, intact, dressed Extremities: non-tender Edema: none Laboratory: Laboratory Results - last 24 hr 10/05/17 10/05/17 10/06/17 19:07 20:29 05:56 WBC 12.7 H RBC 2.99 L Hgb 9.1 L D Hct 28.0 L D MCV 93.6 MCH 30.4 MCHC 32.5 RDW Std Deviation 42.5 Plt Count 113 L MPV 10.4 Hgb /Adult Ratio 0.0020 RhIG Candidate? Is a candidate - Assessment Assessment: SP, Primary C/S - Plan Plan: routine care
[2017-10-06] MEDS ORDERED: RHO(D) IMMUNE GLOBULIN 300 MCG/2 ML INJECTION IVP ONE (09:30)
--- NOTE | 2017-10-06 10:02 | Anesthesia Postoperative Note ---
- Date and Time Date: 10/06/17 Time: 10:01 - Status Patient Participated in Evaluation: Patient Participated in Person Vital Signs: Temperature 98.0 F 10/06/17 04:45 Pulse Rate 74 10/06/17 04:45 Respiratory Rate 16 10/06/17 04:45 Blood Pressure 90/50 10/06/17 04:45 Pulse Oximetry 100 10/06/17 04:45 Respiratory Function: Airway Patent Cardiovascular Function: Regular Pulse EKG: Sinus Rhythm Mental Status: Alert and Oriented Pain Intensity: 0 Hydration: Taking PO Fluids Nausea/Vomiting: None Complications During Recover: None Apparent - Follow-Up Instructions Instructions: Per Surgeon
[2017-10-06] MEDS: SIMETHICONE 80 MG CHEWABLE TABLET PO SCH ×3 (10:21→22:35)
[2017-10-06] MEDS: DOCUSATE CALCIUM 240 MG CAPSULE PO SCH (10:21)
[2017-10-06] MEDS: IBUPROFEN 800 MG TABLET PO PRN ×2 (10:21→19:45)
[2017-10-06] MEDS: Oxycodone/Acetaminophen 5/325 1 TAB PO PRN ×2 (16:27→22:34)
[2017-10-07] MEDS: Oxycodone/Acetaminophen 5/325 1 TAB PO PRN ×3 (02:10→12:27)
[2017-10-07] MEDS: IBUPROFEN 800 MG TABLET PO PRN (05:30)
[2017-10-07] MEDS: SIMETHICONE 80 MG CHEWABLE TABLET PO SCH ×2 (07:20→08:25)
[2017-10-07] MEDS: DOCUSATE CALCIUM 240 MG CAPSULE PO SCH (08:25)
[2017-10-07 09:15] VITALS: BP 115/66; PULSE 88; TEMP 98.4; O2SAT 97
--- NOTE | 2017-10-07 11:28 | Progress Note ---
OB PP Progress Note Free Text - Date Date: 10/07/17 - Progress Note Progress Note: vss af incision c/d/i desires dc instructions reviewed f/u 1-2 wks q&a-krb
== END 2017-10-07 12:53 | disposition home or self-care (01) | DRG 766 ==
LOC: MC 15:43
PROVIDERS: ADMIT Obstetrics & Gynecology; ATTEND Obstetrics & Gynecology